=== PATIENT | female | born 1950 | race Caucasian/White ===

== ENCOUNTER → 2019-08-23 13:48 | Outpatient (CLI) | payer MEDICARE, SELFPAY ==
[2019-08-24 09:50] LABS: COVID19 Sendout Not Detected (Not Detect)
== END ==
PROVIDERS: Visit Provider Registered Nurse
DX: Z01.812 Encounter for preprocedural laboratory examination (principal)
CPT/HCPCS: 87635

== ENCOUNTER 2019-08-27 14:59 | Observation (INO) | payer MEDICARE, SELFPAY ==
[2019-08-22 09:02] VITALS: BMI 31.8
[2019-08-26] VITALS (15 sets, daily range): BP systolic 127–164; BP diastolic 62–107; PULSE 89–107; RESP 9–20; TEMP 36.1–36.7; O2SAT 90–100; BMI 31.8
--- NOTE | 2019-08-26 | DI.RAD.S_ITS ---
PROCEDURE: XR HIP W PEL IF DONE RT 4V INDICATIONS: ANTERIOR HIP ARTHROPLASTY TECHNIQUE: AP pelvis with lateral view(s) of the right hip(s). COMPARISON: None. FINDINGS: Right hip arthroplasty components in expected intraoperative alignment. Hardware appears intact. Dictated by: Jatinder Hu M.D. on 08/26/2019 at 15:52 Approved by: Jatinder Hu M.D. on 08/26/2019 at 15:52
--- NOTE | 2019-08-26 06:00 | DI.RAD.S_ITS ---
PROCEDURE: XR PELVIS 1-2V INDICATIONS: post op films TECHNIQUE: 1 view of the lower pelvis acquired. COMPARISON: None. FINDINGS: Normal alignment after right total hip arthroplasty. Bones: Patient is status post right hip arthroplasty, with hardware components in expected positions. The hip joint appears congruent. The visualized bony structures appear intact. Soft tissues: Overlying postoperative changes are noted. No suspicious soft tissue densities. IMPRESSION: Excellent alignment established after right total hip arthroplasty. Dictated by: Duglas Gandhi M.D. on 08/26/2019 at 14:05 Approved by: Duglas Ganhdi M.D. on 08/26/2019 at 14:06
[2019-08-26] MEDS: CELECOXIB 200 MG CAPSULE PO (08:43)
[2019-08-26] MEDS: ACETAMINOPHEN 325 MG TABLET 975 MG PO (08:43)
[2019-08-26] MEDS: PREGABALIN 75 MG CAPSULE PO (08:43)
[2019-08-26] MEDS: LACTATED RINGERS 1,000 ML 42 ML IV ×2 (08:43→11:31)
--- NOTE | 2019-08-26 10:10 | P.OP.PRE_ITS ---
Pre-operative Note COVID-19 COVID-19 status: Negative Result date/Date tested (Pos, Neg/Pending): 08/23/19 Interval Note History & Physical reviewed/Exam performed by Physician: Yes Changes to H&P: No H&P completed within 30 days and has changed as indicated here:: Plan for R anterior JOSHUA. I spoke with the patient that I am in boards collections. She is willing to provide her email to the boards for follow up. Email: [email or web address]
[2019-08-26] MEDS: CEFAZOLIN 2 GM/100 ML FROZ.PIGGY IV ×2 (10:15→17:10)
[2019-08-26] MEDS: TRANEXAMIC ACID 1,000 MG VIAL 1000 MG INJ ×2 (10:45→12:14)
--- NOTE | 2019-08-26 10:59 | SUR.OPER ---
Supine on padded [place] table with bilateral legs secured in padded positioning boots and suspended in positioning spars, operative leg in traction per surgeon. Head on one pillow. Arm on non-operative side secured on padded armboard <90 degrees abduction. Arm on operative side padded and resting across chest then secured with tape over sheet. Padded perineal post in place per surgeon.
[2019-08-26] MEDS: KETOROLAC 30 MG/ML VIAL IV (11:07)
[2019-08-26] MEDS: ROPIVACAINE 0.5% PF 5 MG/ML 20ML VIAL 60 ML INJ (11:07)
[2019-08-26] MEDS: MORPHINE 4 MG/ML INJ INJ (11:07)
[2019-08-26] MEDS: SODIUM CHLORIDE IRRIG SOLUTION 250 ML, POVIDONE-IODINE SPONGE STICKS 1 APPLIC IRR (11:10)
--- NOTE | 2019-08-26 12:45 | P.OP_ITS ---
Operative Date/Time/Diagnoses Date of procedure: 08/26/19 Time of procedure: 12:45 Pre-op diagnosis: right hip OA Post-op diagnosis: same Procedure & Clinicians Procedure: Right anterior JOSHUA Same procedure as scheduled: Yes Indications: right hip OA Surgeon: Ole Saunders Business Trainer: Genesis Lynch Anesthesia Type: General Operative Notes Findings: right hip OA Closure Type: primary Specimen(s): none sent Prosthetic devices, grafts, tissues, transplants, or devices: Mas [employer]hew R3 50 mm cup 50 mm x 32 mm polyethylene liner 2x 25 mm screws Mas and Nephew anthology size 7 standard stem Estimated Blood Loss (mL): 300 Blood products transfused: none Procedure in detail: Patient was met in the preoperative holding area where the site and side of surgery were marked by . Consent had been signed in clinic foot was reviewed again in the preoperative holding area. All last minute questions were answered. Patient was then brought back in the operating room where she was induced under general anesthesia. She was then transferred onto the [place] table. Her feet were placed in the [place] table boots. The right lower extremity then prepped and draped in normal sterile fashion. A surgical time-out was performed verifying the site and side of surgery. A 7 cm long incision centered approximately 2 cm distal and 1 cm lateral to the ASIS was made in the skin using 10. Blade aiming towards the fibular head. Electrocautery was then used to dissect down to the tensor fascia to tensor fascia was then incised using 10. Blade. An Allis clamp was placed on the medial leaflet and the tensor was retracted laterally. A Meyerding was then placed on the lateral aspect of the rectus and electrocautery was used to coagulate the ascending circumflex vessels. Cobra was then placed over the superior neck and a 2nd Cobra was placed onto the inferior neck giving us good capsular exposure. A anterior wall retractor was then placed over the anterior wall and a T-shaped capsulotomy was performed both leaflets were tagged with FiberWire and released cobras were then placed inside the capsule to give us good exposure to the neck. At reciprocating saw was then used to make a neck cut. Neck length was based off our templated films. Head was removed with a corkscrew. A soft tissue protector sleeve was then placed. We templated a size 50 mm cup starting with a size 46 mm Reamer we got down to the bottom of the colloid fossa and then up sized to 48 mm Reamer. Fluoroscopy was brought in at this time and we matched our inlet outlet view as compared to her standing templated film. I then reamed to a size 49 Reamer insult with good chatter. I then selected a 50 mm 3 hole R3 cup. This was placed under fluoroscopic guidance and malleted into place. 225 mm screws were then placed both with good purchase. A 50 mm x 32 mm polyethylene liner was then selected malleted into place. Tabs were checked and all were flush. We then turned our attention to the femoral side. Femoral elevator hook was placed underneath the femur the leg was then externally rotated to 110? and extended to the floor and abducted. A 2 prong retractor was then placed over the medial calcar and a bent Hohmann was placed between the capsule and the abductors and the capsule was released off its insertion on the femur. Next a large retractor was placed over the top of the greater trochanter and the short external rotators were released as necessary for exposure. A canal finer was then used followed by a chili pepper broach followed by size 1 broach. We began up sizing by 1 broach had time until we got to a size 6 broach. We then calcar planed off our 6 broach and got fluoroscopic views it appears that we could up size to canal fill better but overall our limb lengths were equal. The hip was then dislocated and the size 6 broach was removed and a size 7 broach was placed. Size 7 final stem with a standard offset was selected. This was then malleted into place and good rotational stability. A size 32 mm +0 head was then selected and malleted onto the trunnion. This was then reduced the leg was then fully externally rotated and was stable the leg was then externally rotated to 110? and dropped to the floor and still was found to be stable. The leg was then brought back up into neutral rotation final films were obtained. The wound was irrigated with Betadine followed by lavage with normal saline the capsule was then closed with a running Ethibond and the tag sutures removed. The tensor fascia was then closed with a running 0 Vicryl followed by 2 Vicryl in the subcutaneous layer followed by running 3 0 strata fix followed by Dermabond and Aquacel dressing. Complications: none Post-operative Condition: stable Disposition: PACU Plan for aftercare: WBAT RLE, DVt prohylaxis 6 weeks, 24 hours post-op abx, plan to DC to SNF
[2019-08-26] MEDS: HYDROMORPHONE 2 MG INJ IV ×3 (13:06→13:24)
--- NOTE | 2019-08-26 13:45 | SUR.PHASEI ---
Report called to
--- NOTE | 2019-08-26 14:04 | SUR.PHASEI ---
patient transferred to the floor with belongings bag, on o2 monitor. VS stable. IV saline locked. Rt hip dressing CDI. Report given to Natasha.
[2019-08-26] MEDS: LACTATED RINGERS 1,000 ML 125 ML IV (14:23)
--- NOTE | 2019-08-26 14:32 | PC.NURSE ---
Day shift note: Received patient at 1400, S/P right JOSHUA anterior approach by Dr. Saunders. Received awake, alert, and pleasant. On RA, 97%. VSS and afebrile. SCDs placed upon arrival, IVF initiated, ice pack to anterior right hip, which is CDI. CMS intact to RLE. Oriented to room, environment, and plan of care. Call light within reach, high fall risk precautions initiated.
--- NOTE | 2019-08-26 16:05 | PT.IIE ---
Current Diagnoses Unilateral primary osteoarthritis, right hip (08/26/19) Surgery Performed Operation Date: 08/26/19 10:15 Actual Procedures p Total Hip Arthroplasty/Anterior Approach(Right) - Ole Saunders MD Surgical History (Last Updated 05/18/19 @ 10:19 by Mickie White RN) History of hysterectomy (Acute) History of incisional hernia repair (Acute) Hx of bariatric surgery (Acute ~2009) Hx of bilateral cataract extraction (Acute 2018) Hx of cholecystectomy (Acute) Hx of tonsillectomy (Acute) Medical History (Last Updated 05/18/19 @ 10:19 by Mickie White RN) Depression (Acute) Dry skin (Acute) Eczema (Acute) Former smoker (Acute) HTN (hypertension) (Acute) Macular degeneration of both eyes (Acute) Osteoarthritis (Acute) Pneumonia (Acute) PVC (premature ventricular contraction) (Acute) Uterine cancer (Acute) Physical Therapy Inpatient Evaluation/Re-Eval M1 PT/OT-IP Prior Functional Status Start: 08/26/19 17:25 Freq: NEEDED Status: Active Protocol: Document 08/26/19 16:05 AB (Rec: 08/26/19 17:37 AB [id number]) Medical Review Prior Functional Status Medical History Reviewed Yes Communication able to make needs known although needs cues to stay awake but able to respond when questions were asked and able to follow directions Mobility and Gait pt stated that she is independent with all mobilities and ambulation without AD but occasionally uses a SPC Social History Household Members none Living Arrangements Mobile home Number of Floors (Floors) One Floor Number of Stairs To Enter/Railing? 5 steps to enter with L rail ascending Home Environment Standard Height Toilet,Tub/ Shower Home Equipment Shower Seat without Backrest, Hand Held Shower Additional Social History Comment pt does not have anybody to assist her when she goes home M2 PT-IP Current Condition Start: 08/26/19 17:25 Freq: NEEDED Status: Active Protocol: Document 08/26/19 16:05 AB (Rec: 08/26/19 17:37 AB [id number]) Physical Therapy Current Condition Current Condition Evaluation Date 08/26/19 Treatment Diagnosis s/p R JOSHUA anterior approach; difficulty in walking Onset Date 08/26/19 Precautions Anterior Hip Precautions No Hip Extension,No Hip External Rotation Weight Bearing Status Weight Bearing Status Weight Bear as Tolerated Allowed Weight Bearing Amount (enter % RLE WBAT or #) (%) M3 PT-IP Subjective Start: 08/26/19 17:25 Freq: NEEDED Status: Active Protocol: Document 08/26/19 16:05 AB (Rec: 08/26/19 17:37 AB [id number]) Subjective Physical Therapy Visit Type Type Initial Evaluation Visit Start Time 16:05 Visit Stop Time 16:40 Total Visit Minutes 35 Number of RACE RELATIONS ADVISER Visits 0 Physical Therapy Visit Comments Patient Comments pt agreeable to do PT Therapy Pain Assessment Pain When Pain Assessed At Rest Pain Present Pain Present Pain Reported Location Right Hip Intensity 2 Scale Used Numeric (0 - 10) Pain Management Techniques Apply Cold,Re-positioning, Timing of Activity with Medications M4 PT-IP Mobility and Gait Start: 08/26/19 17:25 Freq: NEEDED Status: Active Protocol: Document 08/26/19 16:05 AB (Rec: 08/26/19 17:37 AB [id number]) PT-Bed Mobility Assessment Supine to Sit Supine to Sit Standby Assistance Sit to Supine Sit to Supine Standby Assistance PT-Transfer Assessment Sit to and From Stand Sit to and from Stand Minimal Assistance,1 Person Assistance,Use of Upper Extremities Equipment Transfer Assistive Device Gait Belt,Front Wheeled Walker Orthotic/Prosthetic Devices or Brace: No Transfers Transfer Destination Toilet Transfer Technique ambulated using FWW Transfer Ability Level of Assist Minimal Assistance,1 Person Assistance,Use of Upper Extremities Comments Mobility Comments BP: 160/88 reviewed hip precautions with pt and pt requires cues to recall. completed supine to sit SBA and cues. completed sit to stand min A and cues and was able to sit on EOB SBA. pt c/ o feeling lightheaded. BP: 150/88. pt requesting to use the toilet. completed sit to stand min A and cues and ambulated to the toilet using FWW min A and cues for R quads activation. required min A for controlled descent on the toilet and pt used grab bar. completed sit to stand min A using grab bar and ambulated to the bed using FWW min A and cues. pt requested to go back to bed since she is very sleepy. completed sit to supine SBA. positioned pt in bed. call light and table placed within reach. BP: 148/ 88. ice pack provided. pt immediately dozes off and O2 sat decreased to 78-81. informed nurse. Gait Assessment Gait Gait Assistance Required: Minimum Assistance Distance (Feet) 10 Able to Maintain Weight Bearing Status Yes During Gait Assistive Devices Assistive Device Gait Belt,Front Wheeled Walker Orthotic/Prosthetic Devices or Brace: No Gait Deviations General Gait Pattern Antalgic,Decreased Stride Length,Decreased Feet Clearance Factors Limiting Gait Function Factors Limiting Gait Function Decreased Activity Tolerance, Decreased Strength,Limited Range of Motion,Pain,Poor Balance,Poor Safety Awareness, Respiratory Distress PT-Balance Assessment Sitting Balance and Reactions Static Sitting Balance Ability Good Dynamic Sitting Balance Ability Good Standing Balance and Reactions Static Standing Balance Ability Fair Dynamic Standing Balance Ability Fair Device Used FWW M5 PT-IP Objective Assessments Start: 08/26/19 17:25 Freq: NEEDED Status: Active Protocol: Document 08/26/19 16:05 AB (Rec: 08/26/19 17:37 AB [id number]) Orientation Orientation/Cognition Level of Alertness Alert Orientation Name,Place,Situation Language Function Ability No Deficits Noted Safety Awareness Decreased Safety Awareness Memory Description Short Term Impaired Gross Range of Motion Lower Extremity ROM Assessment Within Functional Limits Strength Lower Extremity Strength Assessment Right Impaired Hip 3+/5 Knee 4-/5 Coordination Assessment Gross Coordination Gross Coordination WNL Sensation Assessment Sensation Gross Sensation WNL Muscle Tone Muscle Tone WNL Yes M6 PT-IP Treatment Start: 08/26/19 17:25 Freq: NEEDED Status: Active Protocol: Document 08/26/19 16:05 AB (Rec: 08/26/19 17:37 AB [id number]) Physical Therapy Treatment Exercises Exercises Heel Slides Education Education Provided Precautions,Weight Bearing Status,Post-Op Packet,Safety M7 PT-IP Assessment and Plan Start: 08/26/19 17:25 Freq: NEEDED Status: Active Protocol: Document 08/26/19 16:05 AB (Rec: 08/26/19 17:37 AB [id number]) PT Summary Assessment and Plan Potential Rehabilitation Potential Good Status of Condition at Evaluation Evolving Summary Impairments Pain,ROM,Strength,Balance, Coordination,Sensation,Tone, Cognition,Bed Mobility, Transfers,Gait,Activity Tolerance Assessment Summary pt requiring min A with mobility and cues to maintain hip precautions. pt lives alone and will not have anybody to assist her. pt needs to be more independent with mobility prior to d/c home and will require SNF rehab at this time. will continue to assess progress. Goals Bed Mobility Goal Independent Transfer Goal Independent,Front Wheeled Walker Gait Goal Independent,Front Wheel Walker Gait Distance 150 Other Goals up/down 5 steps L rail ascending SBA Days to Meet Goals 5 Frequency of Treatment Frequency Of Treatment Twice a Day Treatment Plan Physical Therapy Treatment Plan Bed Mobility Training,Transfer Training,Gait Training, Therapeutic Exercise,Balance Retraining,Post Op Education, Discharge Planning,Hot or Cold Pack,Neuromuscular Re-ed, Coordination Retraining,Manual Therapy Recommendations To Nursing Amount of Assist Needed 1 Person Assist Discharge Recommendations PT Discharge Recommendations SNF Rehab Transportation Needs at Discharge Wheelchair/Cabulance
[2019-08-26 20:02] LABS: Add Manual Diff / Slide Review NO; Basophils Absolute Auto 0 /uL (0-100); Basophils Percent Auto 0.1 % (0-2); Eosinophils Absolute Auto 0 /uL (0-450); Hematocrit 33.6 % (36-46); Hemoglobin 11.1 g/dL (12.0-16.0); Lymphocytes Absolute Auto 400 /uL (1100-4500); Lymphocytes Percent Auto 4.6 % (25-40); Mean Corpuscular Hemoglobin 29.2 PG (26-34); Mean Corpuscular Volume 88.5 fL (80-100); Monocytes Absolute Auto 300 /uL (0-900); Monocytes Percent Auto 3.4 % (3-14); Neutrophils Absolute Auto 8500 /uL (1500-7000); Neutrophils Percent Auto 91.9 % (50-75); Platelet Count 130 X10^3/uL (150-400); Red Cell Distribution Width 13.1 % (11.6-14.8); White Blood Cell Count 9.3 X10^3/uL (4.5-11.0)
[2019-08-26] MEDS: diphenhydrAMINE 25 MG TABLET 100 MG PO (20:35)
[2019-08-26] MEDS: AMLODIPINE 5 MG TABLET 10 MG PO (20:35)
[2019-08-26] MEDS: OXYCODONE IR 5 MG TABLET PO (20:35)
[2019-08-26] MEDS: MELATONIN 3 MG TABLET 9 MG PO (20:36)
[2019-08-26] MEDS: ASPIRIN EC 81 MG TABLET PO (20:36)
[2019-08-27] VITALS (7 sets, daily range): BP systolic 124–147; BP diastolic 61–73; PULSE 86–110; RESP 16–18; TEMP 36.7–37.4; O2SAT 96–99
[2019-08-27] MEDS: CEFAZOLIN 2 GM/100 ML FROZ.PIGGY IV (01:16)
[2019-08-27] MEDS: OXYCODONE IR 5 MG TABLET PO ×4 (02:25→20:40)
[2019-08-27 05:50] LABS: Hematocrit 30.8 % (36-46); Hemoglobin 10.3 g/dL (12.0-16.0)
--- NOTE | 2019-08-27 07:31 | PM.PN.1 ---
Subjective Subjective Date Patient Seen: 08/27/19 Time Patient Seen: 07:31 Interval history: Patient is doing well post-op. Pain is well controlled. She is now POD#1 from right JOSHUA. She worked with PT yesterday. Exam Vital Signs (past 8 hours): - 08/26/19 23:50 08/27/19 04:50 Temperature 98.0 F 98.0 F Pulse Rate 90 92 H Respiratory Rate 16 16 Blood Pressure 127/62 147/65 H Pulse Oximetry 93 98 Oxygen Delivery Method Room Air Oxygen Flow Rate 0 Narrative Exam Narrative: NV intact in RLE, dressing c/d/i Objective Labs Result Diagrams: 08/27/19 05:25 Labs: Laboratory Results - last 24 hr 08/26/19 08/27/19 19:55 05:25 WBC 9.3 RBC 3.80 L Hgb 11.1 L 10.3 L Hct 33.6 L 30.8 L MCV 88.5 MCH 29.2 MCHC 33.0 RDW 13.1 Plt Count 130 L Neut % (Auto) 91.9 H Lymph % (Auto) 4.6 L [place] % (Auto) 3.4 Eos % (Auto) 0.0 L Baso % (Auto) 0.1 Neut # (Auto) 8500 H Lymph # (Auto) 400 L [place] # (Auto) 300 Eos # (Auto) 0 Baso # (Auto) 0 Assessment & Plan Assessment & Plan narrative: Patient is a 69 yo F who is now POD#1 from right anterior JOSHUA. Overall doing well. Her plan is to go to a SNF post-op. She lives alone. - ASA 81mg BID for 6 weeks - complete 24 hrs post-op abx - WBAT RLE - NO hip precautions - continue PT Time Spent With Patient Time with patient: less than 15 minutes
[2019-08-27] MEDS: ACETAMINOPHEN 325 MG TABLET 650 MG PO ×3 (08:46→18:46)
[2019-08-27] MEDS: ASPIRIN EC 81 MG TABLET PO ×2 (08:46→20:40)
[2019-08-27] MEDS: hydroCHLOROthiazide 12.5 MG CAPSULE PO (08:46)
[2019-08-27] MEDS: SODIUM CHLORIDE 0.9% FLUSH 10 ML IV (08:47)
--- NOTE | 2019-08-27 11:02 | PC.NURSE ---
Shift summary: Alert and oriented X3. 1-person/SBA with FWW. Dressing to R hip dry/intact with shadow drainage at distal portion. CMS+, denies paresthesias. Reports pain well-managed with scheduled Tylenol and PRN Oxycodone. Fresh ice pack in place. Lungs CTA, HRR. Using IS independently, encouraged to continue. Showered this morning with SALES CONSULTANT assist. Resting back in bed at this time. Able to make needs known and calls appropriately. Light and belongings within reach, bed alarm on.
--- NOTE | 2019-08-27 11:15 | PT.IPTN ---
Current Diagnoses Unilateral primary osteoarthritis, right hip (08/26/19) Surgery Performed Operation Date: 08/26/19 10:15 Actual Procedures p Total Hip Arthroplasty/Anterior Approach(Right) - Ole Saunders MD Physical Therapy Treatment Note M2 PT-IP Current Condition Start: 08/26/19 17:25 Freq: NEEDED Status: Active Protocol: Document 08/26/19 16:05 AB (Rec: 08/26/19 17:37 AB [id number]) Physical Therapy Current Condition Current Condition Evaluation Date 08/26/19 Treatment Diagnosis s/p R JOSHUA anterior approach; difficulty in walking Onset Date 08/26/19 Precautions Anterior Hip Precautions No Hip Extension,No Hip External Rotation Weight Bearing Status Weight Bearing Status Weight Bear as Tolerated Allowed Weight Bearing Amount (enter % RLE WBAT or #) (%) M3 PT-IP Subjective Start: 08/26/19 17:25 Freq: NEEDED Status: Active Protocol: Document 08/27/19 10:57 KS (Rec: 08/27/19 13:20 KS [id number]) Subjective Physical Therapy Visit Type Type Treatment Note Visit Start Time 10:57 Visit Stop Time 11:15 Total Visit Minutes 18 Number of DRIVERS' CASH CLERK Visits 1 Physical Therapy Visit Comments Patient Comments pt agreeable to do PT M4 PT-IP Mobility and Gait Start: 08/26/19 17:25 Freq: NEEDED Status: Active Protocol: Document 08/27/19 10:57 KS (Rec: 08/27/19 13:20 KS [id number]) PT-Bed Mobility Assessment Supine to Sit Supine to Sit Standby Assistance Sit to Supine Sit to Supine Standby Assistance Scooting Scooting to Edge of Bed Standby Assistance PT-Transfer Assessment Sit to and From Stand Sit to and from Stand Contact Guard Assistance,1 Person Assistance,Use of Upper Extremities Equipment Transfer Assistive Device Gait Belt,Front Wheeled Walker Orthotic/Prosthetic Devices or Brace: No Transfers Transfer Destination Bed,Toilet Transfer Technique ambulated using FWW Transfer Ability Level of Assist Contact Guard Assistance,1 Person Assistance,Use of Upper Extremities Comments Mobility Comments Pt was in bed upon arrival from therapy. pt sup<>sit w/ HOB elevated and scooted to edge of bed SBA. Pt then sit<> stand CGA w/ FWW and ambulated to toilet. Stand<>sit on toilet CGA w/ Min A for doffing briefs. Pt then sit<> stand from toilet CGA and was able to don briefs on her own. She then ambulated ~50 ft and returned to room. CGA for stand<>sit, SBA sit<>sup and repositioning w/ HOB elevated. Pt left in bed w/ all needs in reach. Gait Assessment Gait Gait Assistance Required: Contact Guard Assist Distance (Feet) 60 Able to Maintain Weight Bearing Status Yes During Gait Assistive Devices Assistive Device Gait Belt,Front Wheeled Walker Orthotic/Prosthetic Devices or Brace: No Gait Deviations General Gait Pattern Antalgic,Decreased Stride Length,Decreased Feet Clearance Factors Limiting Gait Function Factors Limiting Gait Function Decreased Activity Tolerance, Decreased Strength,Limited Range of Motion,Pain,Poor Balance,Poor Safety Awareness, Respiratory Distress Comments Gait Comments Pt ambulated ~60 ft w/ CGA and FWW, cues for quad activation , heel toe walking. PT-Balance Assessment Sitting Balance and Reactions Static Sitting Balance Ability Good Dynamic Sitting Balance Ability Good Standing Balance and Reactions Static Standing Balance Ability Good Dynamic Standing Balance Ability Fair Device Used FWW M5 PT-IP Objective Assessments Start: 08/26/19 17:25 Freq: NEEDED Status: Active Protocol: Document 08/26/19 16:05 AB (Rec: 08/26/19 17:37 AB [id number]) Orientation Orientation/Cognition Level of Alertness Alert Orientation Name,Place,Situation Language Function Ability No Deficits Noted Safety Awareness Decreased Safety Awareness Memory Description Short Term Impaired Gross Range of Motion Lower Extremity ROM Assessment Within Functional Limits Strength Lower Extremity Strength Assessment Right Impaired Hip 3+/5 Knee 4-/5 Coordination Assessment Gross Coordination Gross Coordination WNL Sensation Assessment Sensation Gross Sensation WNL Muscle Tone Muscle Tone WNL Yes M6 PT-IP Treatment Start: 08/26/19 17:25 Freq: NEEDED Status: Active Protocol: Document 08/27/19 10:57 KS (Rec: 08/27/19 13:20 KS [id number]) Physical Therapy Treatment Education Education Provided Precautions,Weight Bearing Status,Post-Op Packet,Safety M7 PT-IP Assessment and Plan Start: 08/26/19 17:25 Freq: NEEDED Status: Active Protocol: Document 08/27/19 10:57 KS (Rec: 08/27/19 13:20 KS [id number]) PT Summary Assessment and Plan Potential Rehabilitation Potential Good Status of Condition at Evaluation Evolving Summary Impairments Pain,ROM,Strength,Balance, Coordination,Sensation,Tone, Cognition,Bed Mobility, Transfers,Gait,Activity Tolerance Progress Towards Goals Progressing Toward Goals Assessment Summary Pt SBA for bed mobility and CGA for transfers and ambulation today. Cues for heel toe walking and quad activation during ambulation. D/c depending on pts progress , although she is improving she fatigues quickly and may require SNF to improve tolerance for activity. Goals Bed Mobility Goal Independent Transfer Goal Independent,Front Wheeled Walker Gait Goal Independent,Front Wheel Walker Gait Distance 150 Other Goals up/down 5 steps L rail ascending SBA Days to Meet Goals 5 Frequency of Treatment Frequency Of Treatment Twice a Day Treatment Plan Physical Therapy Treatment Plan Bed Mobility Training,Transfer Training,Gait Training, Therapeutic Exercise,Balance Retraining,Post Op Education, Discharge Planning,Hot or Cold Pack,Neuromuscular Re-ed, Coordination Retraining,Manual Therapy Recommendations To Nursing Amount of Assist Needed 1 Person Assist Discharge Recommendations PT Discharge Recommendations SNF Rehab Transportation Needs at Discharge Wheelchair/Cabulance
--- NOTE | 2019-08-27 11:18 | CM.DANOTE ---
Addendum entered by Molly Vines R.N. 08/27/19 12:21: Brought in the Medicare Choice List for patient to review. Encouraged her to look at it, and discuss with daughter, and can make a second choice. Will meet again with patient tomorrow to discuss. Original Note: DCP: Case received, EMR reviewed and met with patient. Introduced self and role. Was able to meet with patient and obtain information regarding her baseline activity prior to surgery, and her living situation. DCP assessment completed with information currently available. Patient is a 69 year old female who admitted yesterday morning to the care of the orthopedic team. PCP: Dr. Us, [facility], in [place]. Payer: confirmed: [facility] Medicare. Patient came to the hospital via private vehicle for a surgical procedure. She had right total hip arthroplasty. She has had history of chronic pain. According to notes, patient is wanting to go to skilled rehab secondary to living alone, and needing assistance after surgery. Met with patient in her room. She is pleasant, alert and oriented. She was sitting up in bed knitting. 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 She resides alone in [place]. At baseline, she is independent. She does have a daughter that lives in [place]. Discussed skilled rehab with patient. She is hoping to go to [facility], before going home. Let her know that they would need to get an insurance authorization with her [employer], and she is aware. This would not happen until Thursday. She would also need an updated COVID as well. Spoke to Kaylin at [facility]. She is reviewing. Stated that they can usually get the authorization pretty fast, but have to confirm with Lynette on Thursday if they have availabilities. P: DCP to continue to follow. Will encourage patient to make a second choice, and will give her the Medicare Choice List, in case [facility] can't accept. Will have to verify with [facility] if they can accept on Thursday, for only one facility can get authorization for her insurance at a time. Molly Vines RN/Primary Care Physician
--- NOTE | 2019-08-27 16:42 | PT.IPTN ---
Current Diagnoses Unilateral primary osteoarthritis, right hip (08/26/19) Surgery Performed Operation Date: 08/26/19 10:15 Actual Procedures p Total Hip Arthroplasty/Anterior Approach(Right) - Ole Saunders MD Physical Therapy Treatment Note M2 PT-IP Current Condition Start: 08/26/19 17:25 Freq: NEEDED Status: Active Protocol: Document 08/26/19 16:05 AB (Rec: 08/26/19 17:37 AB [id number]) Physical Therapy Current Condition Current Condition Evaluation Date 08/26/19 Treatment Diagnosis s/p R JOSHUA anterior approach; difficulty in walking Onset Date 08/26/19 Precautions Anterior Hip Precautions No Hip Extension,No Hip External Rotation Weight Bearing Status Weight Bearing Status Weight Bear as Tolerated Allowed Weight Bearing Amount (enter % RLE WBAT or #) (%) M3 PT-IP Subjective Start: 08/26/19 17:25 Freq: NEEDED Status: Active Protocol: Document 08/27/19 16:25 KS (Rec: 08/27/19 17:48 KS [id number]) Subjective Physical Therapy Visit Type Type Treatment Note Visit Start Time 16:25 Visit Stop Time 16:42 Total Visit Minutes [address] JUD[address] Visits 2 Physical Therapy Visit Comments Patient Comments pt agreeable to do PT Therapy Pain Assessment Pain When Pain Assessed During Mobility Pain Present Pain Present Pain Reported Location Right Hip Scale Used no number given Description Aching Pain Management Techniques Re-positioning M4 PT-IP Mobility and Gait Start: 08/26/19 17:25 Freq: NEEDED Status: Active Protocol: Document 08/27/19 16:25 KS (Rec: 08/27/19 17:48 KS [id number]) PT-Bed Mobility Assessment Supine to Sit Supine to Sit Standby Assistance Sit to Supine Sit to Supine Standby Assistance Scooting Scooting to Edge of Bed Standby Assistance PT-Transfer Assessment Sit to and From Stand Sit to and from Stand Contact Guard Assistance,1 Person Assistance,Use of Upper Extremities Equipment Transfer Assistive Device Gait Belt,Front Wheeled Walker Orthotic/Prosthetic Devices or Brace: No Transfers Transfer Destination Bed,Toilet Transfer Technique ambulated using FWW Transfer Ability Level of Assist Contact Guard Assistance,1 Person Assistance,Use of Upper Extremities Comments Mobility Comments Pt was in bed upon arrival from therapy. SBA for sup<>sit and scooting to EOB. CGA for sit<>stand w/ FWW. Pt then ambulated CGA to toilet, SBA for stand<>sit<>stand from toilet and pt able to don and doff briefs w/o assist. Pt then ambulated to sink to perform hand hygiene, pt maintained standing balanced 1 min while washing hands, then ambulated ~[address] CGA w/ FWW. Cues for heel toe walking and quad activation. Pt returned to room, stand<> sit and sit<>sup SBA. Pt left in bed w/ SCDs on, RN in room and all needs in reach. Gait Assessment Gait Gait Assistance Required: Contact Guard Assist Distance (Feet) 110 Able to Maintain Weight Bearing Status Yes During Gait Assistive Devices Assistive Device Gait Belt,Front Wheeled Walker Orthotic/Prosthetic Devices or Brace: No Gait Deviations General Gait Pattern Antalgic,Decreased Stride Length,Decreased Feet Clearance Factors Limiting Gait Function Factors Limiting Gait Function Decreased Activity Tolerance, Decreased Strength,Limited Range of Motion,Pain,Poor Balance,Poor Safety Awareness, Respiratory Distress Comments Gait Comments Please refer to mobility section for details. PT-Balance Assessment Sitting Balance and Reactions Static Sitting Balance Ability Good Dynamic Sitting Balance Ability Good Standing Balance and Reactions Static Standing Balance Ability Good Dynamic Standing Balance Ability Fair Device Used FWW M5 PT-IP Objective Assessments Start: 08/26/19 17:25 Freq: NEEDED Status: Active Protocol: Document 08/26/19 16:05 AB (Rec: 08/26/19 17:37 AB [id number]) Orientation Orientation/Cognition Level of Alertness Alert Orientation Name,Place,Situation Language Function Ability No Deficits Noted Safety Awareness Decreased Safety Awareness Memory Description Short Term Impaired Gross Range of Motion Lower Extremity ROM Assessment Within Functional Limits Strength Lower Extremity Strength Assessment Right Impaired Hip 3+/5 Knee 4-/5 Coordination Assessment Gross Coordination Gross Coordination WNL Sensation Assessment Sensation Gross Sensation WNL Muscle Tone Muscle Tone WNL Yes M6 PT-IP Treatment Start: 08/26/19 17:25 Freq: NEEDED Status: Active Protocol: Document 08/27/19 16:25 KS (Rec: 08/27/19 17:48 KS [id number]) Physical Therapy Treatment Education Education Provided Precautions,Weight Bearing Status,Post-Op Packet,Safety M7 PT-IP Assessment and Plan Start: 08/26/19 17:25 Freq: NEEDED Status: Active Protocol: Document 08/27/19 16:25 KS (Rec: 08/27/19 17:48 KS [id number]) PT Summary Assessment and Plan Potential Rehabilitation Potential Good Status of Condition at Evaluation Evolving Summary Impairments Pain,ROM,Strength,Balance, Coordination,Sensation,Tone, Cognition,Bed Mobility, Transfers,Gait,Activity Tolerance Progress Towards Goals Progressing Toward Goals Assessment Summary Pt SBA for bed mobility and SBA to CGA for transfers and ambulation today. Pt able to tolerate increased ambulation distance today, but c/o fatigue after ~80 ft. and continues to have low tolerance for activity. Goals Bed Mobility Goal Independent Transfer Goal Independent,Front Wheeled Walker Gait Goal Independent,Front Wheel Walker Gait Distance 150 Other Goals up/down 5 steps L rail ascending SBA Days to Meet Goals 5 Frequency of Treatment Frequency Of Treatment Twice a Day Treatment Plan Physical Therapy Treatment Plan Bed Mobility Training,Transfer Training,Gait Training, Therapeutic Exercise,Balance Retraining,Post Op Education, Discharge Planning,Hot or Cold Pack,Neuromuscular Re-ed, Coordination Retraining,Manual Therapy Recommendations To Nursing Amount of Assist Needed 1 Person Assist Discharge Recommendations PT Discharge Recommendations Home with Assistance,Home Health,SNF Rehab Transportation Needs at Discharge Wheelchair/Cabulance
[2019-08-27] MEDS: MELATONIN 3 MG TABLET 9 MG PO (20:40)
[2019-08-27] MEDS: diphenhydrAMINE 25 MG TABLET 100 MG PO (20:40)
[2019-08-27] MEDS: AMLODIPINE 5 MG TABLET 10 MG PO (20:40)
[2019-08-28] MEDS: OXYCODONE IR 5 MG TABLET PO ×6 (00:56→20:52)
[2019-08-28 04:35] VITALS: BP 146/77; PULSE 97; RESP 14; TEMP 37; O2SAT 98
[2019-08-28 07:30] VITALS: BP 147/95; PULSE 91; RESP 18; TEMP 36.9; O2SAT 99
[2019-08-28] MEDS: ACETAMINOPHEN 325 MG TABLET 650 MG PO ×3 (07:56→20:51)
[2019-08-28] MEDS: SODIUM CHLORIDE 0.9% FLUSH 10 ML IV (07:57)
[2019-08-28] MEDS: ASPIRIN EC 81 MG TABLET PO ×2 (07:58→20:52)
[2019-08-28] MEDS: hydroCHLOROthiazide 12.5 MG CAPSULE PO (07:59)
--- NOTE | 2019-08-28 08:41 | CM.DPC ---
Addendum entered by Molly Vines R.N. 08/28/19 13:29: Had another conversation with patient that her insurance most likely may not cover skilled, for she is ambulating with minimal assist, and has completed stair training with P.T. Updated Dr. Mas that patient could go home today with home health if needed. After visit, patient stated, she is not ready to go home. She is staying another day. Had another conversation with patient that she will need to be discharged home tomorrow, regardless if [facility] gets auth, or not, for she is stable. She indicated that she can go home and pursue outpatient P.T. with [facility], and she will call them tomorrow. There is no need at this time to look into second choice of facilities. Plan tomorrow is to discharge home with outpatient P.T. Can still follow up with [facility] as well. Original Note: DCP Cont: Spoke to patient this morning. She was sitting up having her breakfast. Asked her if she had a back up plan if her insurance does not authorize assisted. Stated, if she has to, she could stay with her daughter, but she has a small apartment. Let patient know that there is a possibility that her insurance may not approve. Also, asked her if she made a second choice of facilities. Stated that she will discuss with her daughter today. P: DCP to continue to follow. [facility] has referral, they will need to get an authorization from her managed Medicare. Also, it is uncertain if they will have availability tomorrow, will need to contact August, and patient will need to make a second choice. Other option is home with home health. Molly Vines RN/Business Support Professional
--- NOTE | 2019-08-28 10:52 | PT.IPTN ---
Current Diagnoses Unilateral primary osteoarthritis, right hip (08/26/19) Surgery Performed Operation Date: 08/26/19 10:15 Actual Procedures p Total Hip Arthroplasty/Anterior Approach(Right) - Ole Saunders MD Physical Therapy Treatment Note M2 PT-IP Current Condition Start: 08/26/19 17:25 Freq: NEEDED Status: Active Protocol: Document 08/26/19 16:05 AB (Rec: 08/26/19 17:37 AB [id number]) Physical Therapy Current Condition Current Condition Evaluation Date 08/26/19 Treatment Diagnosis s/p R JOSHUA anterior approach; difficulty in walking Onset Date 08/26/19 Precautions Anterior Hip Precautions No Hip Extension,No Hip External Rotation Weight Bearing Status Weight Bearing Status Weight Bear as Tolerated Allowed Weight Bearing Amount (enter % RLE WBAT or #) (%) M3 PT-IP Subjective Start: 08/26/19 17:25 Freq: NEEDED Status: Active Protocol: Document 08/28/19 09:39 LJ (Rec: 08/28/19 10:52 LJ [id number]) Subjective Physical Therapy Visit Type Type Treatment Note Visit Start Time 09:39 Visit Stop Time 10:05 Total Visit Minutes 31 Number of COMPUTER FORENSICS TECHNICIAN Visits 3 Physical Therapy Visit Comments Patient Comments pt agreeable to do PT Therapy Pain Assessment Pain When Pain Assessed During Mobility Pain Present Pain Present Pain Reported M4 PT-IP Mobility and Gait Start: 08/26/19 17:25 Freq: NEEDED Status: Active Protocol: Document 08/28/19 09:39 LJ (Rec: 08/28/19 10:52 JOSE [id number]) PT-Bed Mobility Assessment Supine to Sit Supine to Sit Standby Assistance Sit to Supine Sit to Supine Standby Assistance Scooting Scooting to Edge of Bed Standby Assistance PT-Transfer Assessment Sit to and From Stand Sit to and from Stand Standby Assistance,Use of Upper Extremities Equipment Transfer Assistive Device Gait Belt,Front Wheeled Walker Transfers Transfer Destination Bed Transfer Ability Level of Assist Standby Assistance,Use of Upper Extremities Comments Mobility Comments Pt returning to bed from using the toilet w/o assistance. Nursing in room. Sit<>stand using UEs to push off bed and lower self to side of bed when returning required SBA. Pt able to perform transfers safely w/o assistance. She did require slight assistance getting RLE into the bed. She was able to position herself in bed independently. Gait Assessment Gait Gait Assistance Required: Standby Assistance Distance (Feet) 150 Able to Maintain Weight Bearing Status Yes During Gait Assistive Devices Assistive Device Gait Belt,Front Wheeled Walker Orthotic/Prosthetic Devices or Brace: No Gait Deviations General Gait Pattern Antalgic,Decreased Stride Length,Decreased Feet Clearance Factors Limiting Gait Function Factors Limiting Gait Function Decreased Activity Tolerance, Decreased Strength,Limited Range of Motion,Pain,Poor Balance,Poor Safety Awareness Comments Gait Comments Pt ambulated to stairs and back to room SBA using FWW. Cues for upright posture and more even distibution of weight on both lower limbs Stair Climbing Assessment Evaluation Level of Assist On Stairs Standby Assistance,Contact Guard Assistance Devices Stair Climbing Assistive Devices Left Railing,Right Railing Technique/Endurance Stair Climbing Direction Ascend and Descend Stair Climbing Technique Step to Step Number of Steps Climbed 3 Stair Climbing Set # Repetitions (reps) 1 Comments Stair Climbing Comments Pt not wanting to trial stairs . Complained of wooziness during ambulation and stopped for several seconds to breathe deeply and catch her breath. Pt ascended the stairs using both railings leading with LLE . At the top of the stairs she rested for several seconds then descended the top stair and sat down on the top step due to feeling woozie. She rested there and was able to carry on a conversation while performing some deep breaths. Pt then used railings to stand up on the second step and continue down the stairs. Pt was able to stand from seated position on the stairs w/o assistance other than using the railings. She then continued to ambulate back to her room. Pt stated she has contacted an OP therapy clinic for PT after discharge. Also stated she has friends who could drive her to appointments. M5 PT-IP Objective Assessments Start: 08/26/19 17:25 Freq: NEEDED Status: Active Protocol: Document 08/26/19 16:05 AB (Rec: 08/26/19 17:37 AB [id number]) Orientation Orientation/Cognition Level of Alertness Alert Orientation Name,Place,Situation Language Function Ability No Deficits Noted Safety Awareness Decreased Safety Awareness Memory Description Short Term Impaired Gross Range of Motion Lower Extremity ROM Assessment Within Functional Limits Strength Lower Extremity Strength Assessment Right Impaired Hip 3+/5 Knee 4-/5 Coordination Assessment Gross Coordination Gross Coordination WNL Sensation Assessment Sensation Gross Sensation WNL Muscle Tone Muscle Tone WNL Yes M6 PT-IP Treatment Start: 08/26/19 17:25 Freq: NEEDED Status: Active Protocol: Document 08/28/19 09:39 (Rec: 08/28/19 10:52 [id number]) Physical Therapy Treatment Exercises Exercises Ankle Pumps,Gluteal Sets,Quad Sets Education Education Provided Precautions,Weight Bearing Status,Safety M7 PT-IP Assessment and Plan Start: 08/26/19 17:25 Freq: NEEDED Status: Active Protocol: Document 08/28/19 09:39 (Rec: 08/28/19 10:52 [id number]) PT Summary Assessment and Plan Potential Rehabilitation Potential Good Status of Condition at Evaluation Evolving Summary Impairments Pain,ROM,Strength,Balance, Coordination,Sensation,Tone, Cognition,Bed Mobility, Transfers,Gait,Activity Tolerance Progress Towards Goals Progressing Toward Goals Assessment Summary Pt SBA for bed mobility (other than slight assist to lift RLE onto bed). Transfers w/o assistance using UE to push off and lower self onto bed. Pt is stable ambulating with FWW giving herself cues for posture and normalizing gait. She is able to ascend and descend 3 stairs with rest break. Needs cues on deep breathing during activity. Pt has met goals of ambulation distance and stair training. Goals Bed Mobility Goal Independent Transfer Goal Independent,Front Wheeled Walker Gait Goal Independent,Front Wheel Walker Gait Distance 150 Other Goals up/down 5 steps L rail ascending SBA Days to Meet Goals 5 Frequency of Treatment Frequency Of Treatment Twice a Day Treatment Plan Physical Therapy Treatment Plan Bed Mobility Training,Transfer Training,Gait Training, Therapeutic Exercise,Balance Retraining,Post Op Education, Discharge Planning,Hot or Cold Pack,Neuromuscular Re-ed, Coordination Retraining,Manual Therapy Recommendations To Nursing Amount of Assist Needed 1 Person Assist Discharge Recommendations PT Discharge Recommendations Home with Assistance,Home Health,Outpatient PT Transportation Needs at Discharge Wheelchair/Cabulance
[2019-08-28 11:16] VITALS: BP 128/68; PULSE 89; RESP 18; TEMP 36.8; O2SAT 98
--- NOTE | 2019-08-28 12:50 | P.PN_ITS ---
Subjective Subjective Date Patient Seen: 08/28/19 Time Patient Seen: 12:50 Interval history: She notes that she made some progress with physical therapy today she was able to get up and down the steps. 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 She has a daughter who works in town as a bridges supervisor who lives in an apartment with 7 steep steps. Exam Vital Signs (past 8 hours): - 08/28/19 07:30 08/28/19 11:16 Temperature 98.4 F 98.3 F Pulse Rate 91 H 89 Respiratory Rate 18 18 Blood Pressure 147/95 H 128/68 Pulse Oximetry 99 98 Oxygen Delivery Method Room Air Oxygen Flow Rate 0 Narrative Exam Narrative: She is neurologically intact distally or calfs are soft bilaterally bilaterally, her dressings intact, she can flex her hip and do a s traight leg raise but both flexion and straight leg raise is somewhat weak. Objective Labs Result Diagrams: 08/27/19 05:25 Assessment & Plan Assessment & Plan narrative: Improving status post right total hip arthroplasty plan continue to progress with physical therapy I encouraged her to get out of bed multiple times today to work on walking up and down the simmons an progressive weight-bearing. She is going to speak to her daughter were working on a discharge plan if she needs additional therapy she may need to go to rehab otherwise there is a chance we can get her discharged to home.
--- NOTE | 2019-08-28 14:15 | PT-IP ANOTE ---
Pt refusal in afternoon.
[2019-08-28 15:20] VITALS: BP 141/72; PULSE 91; RESP 17; TEMP 37.6; O2SAT 96
[2019-08-28 20:43] VITALS: BP 159/69; PULSE 92; RESP 16; TEMP 36.8; O2SAT 98
[2019-08-28] MEDS: AMLODIPINE 5 MG TABLET 10 MG PO (20:52)
[2019-08-28] MEDS: diphenhydrAMINE 25 MG TABLET 100 MG PO (20:57)
[2019-08-28] MEDS: MELATONIN 3 MG TABLET 9 MG PO (20:57)
--- NOTE | 2019-08-28 22:45 | PC.NURSE ---
ambulated in hallways in tracy shift. 1pa fww. dressing intact with small shadow drainage. pain managed with oxycodone and tylenol. call ligth in reach. bed alarm active.
--- NOTE | 2019-08-29 01:13 | PC.NURSE ---
Addendum entered by Hilda Hill R.N. 08/29/19 01:42: States pain is now up to 4/10; requested/medicated with Oxycodone. Original Note: Patient is alert and oriented. Breath sounds CTA with RA sat of 96%. HRR. Denies nausea. BT present and is passing flatus but has not had BM since 08/24 but states I haven't eaten much. Aquacel dressing to right anterior hip is CDI; minimal bruising noted around dressing. Voiding without dysuria, frequency or urgency. Is assisted out of bed and uses walker due to weakness in right LE. Able to move self in bed. States pain is 2/10 and declines pain medication at this time; ice pack applied. CMS is intact. Wearing bilateral calf SCD's. Fall risk score is moderate and bed alarm is activated.
[2019-08-29 01:26] VITALS: BP 129/67; PULSE 84; RESP 17; TEMP 36.6; O2SAT 96
[2019-08-29] MEDS: OXYCODONE IR 5 MG TABLET PO ×2 (01:41→10:02)
[2019-08-29 04:17] VITALS: BP 148/72; PULSE 91; RESP 16; TEMP 36.1; O2SAT 98
[2019-08-29 08:00] VITALS: BP 147/71; PULSE 91; RESP 18; TEMP 36.3; O2SAT 98
--- NOTE | 2019-08-29 08:34 | CM.DPC ---
DCP/continued: Reviewed chart. Current d/c plan is SNF vs. home with supportive daughter/Amelie. Per notes, patient physically doing very well after right JOSHUA performed on 08-26-[address] Saunders. Met with patient this AM to discuss d/c planning. Patient initially thought that she should go to SNF. After discussing with Dr. Mas yesterday and her progress she is now very comfortable staying at her daughter's at time of d/c. Daughter/Amelie resides in [place] and only works 1 day per week. Patient provided AUTOMOTIVE VEHICLE INSPECTOR with permission to speak with her daughter. Placed call to Amelie explained role. Amelie very comfortable taking patient home today. She has no problem with assisting her with ADL's as needed. Patient reports that she plans to do outpatient therapy at [facility] in [place]. Updated RN/Betty and Meg. Awaiting orthopedic group to round this AM. Anticipate d/c today. Notified PT of above. Hopeful they can see patient prior to d/c today. P: Home with outpatient therapy once discharged. HOLLY Portillo
[2019-08-29] MEDS: ACETAMINOPHEN 325 MG TABLET 650 MG PO (09:14)
[2019-08-29] MEDS: ASPIRIN EC 81 MG TABLET PO (09:14)
[2019-08-29] MEDS: polyethylene glycoL 3350 17 GM POWD.PACK PO (09:14)
[2019-08-29] MEDS: SODIUM CHLORIDE 0.9% FLUSH 10 ML IV (09:14)
[2019-08-29] MEDS: hydroCHLOROthiazide 12.5 MG CAPSULE PO (09:14)
--- NOTE | 2019-08-29 10:02 | PM.DS.1 ---
History of Present Illness History of Present Illness Date Patient Seen: 08/29/19 Time Patient Seen: 10:03 Chief complaint: RT JOSHUA 08/25 Discharge Providers Provider Discharge Date: 08/29/19 Consults: 08/26/19 06:00 Consult to Anesthesiology Routine Comment: Consulting Provider: Anesthesiologist Reason for consultation: Regional block for post operative pain control 08/26/19 13:52 Consult to Discharge Planning Routine Comment: Consult to Physical Therapy Evaluate & Treat Comment: Physician Instructions: post op JOSHUA protocol Consult to Respiratory Therapy Evaluate & Treat Comment: Physician Instructions: Evaluate and treat Discharge provider: Genesis Lynch PA-C Summary Hospital Course Discharge Diagnosis: s/p right total hip arthroplasty Hospital Course: Patient was admitted for right total hip arthroplasty with Dr. Saunders. Hospital course was unremarkable. Patient was ambulating with physical therapy throughout her stay. She was eating and voiding without difficulty or assistance. Her daughter will be available to check on her at home. ASA for DVT prophylaxis. Her pain was adequately controlled with Tylenol and ibuprofen. Status at Discharge Functional status at discharge: uses cane/walker Exam Vital Signs (past 8 hours): - 08/29/19 04:17 08/29/19 08:00 Temperature 97.0 F L 97.4 F L Pulse Rate 91 H 91 H Respiratory Rate 16 18 Blood Pressure 148/72 H 147/71 H Pulse Oximetry 98 98 Oxygen Delivery Method Room Air Oxygen Flow Rate 0 Narrative Exam Narrative: Patient lying in bed in no acute distress. She is alert and oriented x3. Calves are soft, compressible, nontender bilaterally. She is able to actively dorsiflex and plantar flex. Pulses are symmetrical. Right anterior dressing is CDI. Sensation intact to light touch throughout bilateral lower extremities. She has not worked with physical therapy yet this morning and is requesting a shower. Objective Labs Result Diagrams: 08/27/19 05:25 Discharge Plan Discharge Plan Patient Disposition: Home Discharge Med Rec/Prescriptions Prescriptions: New polyethylene glycol 3350 17 gram Powder In Packet 17 gm PO DAILY PRN (Reason: Constipation) Qty: 30 RF: 0 aspirin 81 mg Tablet,Delayed Release (Dr/Ec) 81 mg PO BID Qty: 60 RF: 0 oxycodone 5 mg Tablet 5 mg PO Q3HR PRN (Reason: Pain, Moderate (4-6)) Qty: 30 RF: 0 Continued acetaminophen [Acetaminophen Extra Strength] 500 mg Tablet 1,000 mg PO Q12H PRN (Reason: Pain) RF: 0 amlodipine 10 mg Tablet 10 mg PO BEDTIME RF: 0 diphenhydramine HCl [Benadryl] 25 mg Capsule 100 mg PO BEDTIME PRN (Reason: Sleep) RF: 0 ibuprofen 200 mg Tablet 800 mg PO Q12H PRN (Reason: Pain) RF: 0 hydrochlorothiazide 12.5 mg Tablet 12.5 mg PO DAILY RF: 0 melatonin 10 mg Tablet 10 - 30 mg PO BEDTIME PRN (Reason: Sleep) RF: 0 PreserVision AREDS-2 [id number] Capsule 1 tab PO BID RF: 0 Follow up/Referrals: Ole Saunders MD [Physician] - (Follow up with me in 10-14 days post-op) Discharge Orders: Discharge (Order); Ordered 08/29/19 Ordered By: Genesis Lynch Provider Discharge Instructions Diet: Regular Activity: WBAT RLE, no hip precautions Cold/Heat Therapy: OK to ice as needed for pain and swelling control Skin/Wound/Dressing Care Report to your healthcare provider any signs of infection, such as:: chills, fever, night sweats, increased pain, unusual drainage and unusual redness Dressing: Leave dressing in place until post-op appointment. OK to shower over dressing. Do not soak or bathe. Visit Report/Discharge Packet Instructions: DI for Hip Replacement, How to Prevent Falls, DI for Prescription Opioid Use, Polyethylene Glycol 3350, Oxycodone, Aspirin Stand Alone Forms: Surgery Discharge Discharge Data Attending Provider: Ole Saunders
--- NOTE | 2019-08-29 11:19 | PT.IPTN ---
Current Diagnoses Unilateral primary osteoarthritis, right hip (08/27/19) Surgery Performed Operation Date: 08/26/19 10:15 Actual Procedures p Total Hip Arthroplasty/Anterior Approach(Right) - Ole Saunders MD Physical Therapy Treatment Note M2 PT-IP Current Condition Start: 08/26/19 17:25 Freq: NEEDED Status: Active Protocol: Document 08/26/19 16:05 AB (Rec: 08/26/19 17:37 AB [id number]) Physical Therapy Current Condition Current Condition Evaluation Date 08/26/19 Treatment Diagnosis s/p R JOSHUA anterior approach; difficulty in walking Onset Date 08/26/19 Precautions Anterior Hip Precautions No Hip Extension,No Hip External Rotation Weight Bearing Status Weight Bearing Status Weight Bear as Tolerated Allowed Weight Bearing Amount (enter % RLE WBAT or #) (%) M3 PT-IP Subjective Start: 08/26/19 17:25 Freq: NEEDED Status: Active Protocol: Document 08/29/19 11:06 AW (Rec: 08/29/19 11:19 AW [id number]) Subjective Physical Therapy Visit Type Type Treatment Note Visit Start Time 10:01 Visit Stop Time 10:22 Total Visit Minutes 21 Number of ACTUARIAL ANALYST Visits 0 Physical Therapy Visit Comments Patient Comments Pt is willing to participate with PT Patient Goals Pt hopes to discharge today to her daughter's home. Therapy Pain Assessment Pain When Pain Assessed During Mobility Pain Present Pain Present Reassessed Location right anterior thigh Intensity 3 Scale Used Numeric (0 - 10) Pain Management Techniques Distraction,Re-positioning M4 PT-IP Mobility and Gait Start: 08/26/19 17:25 Freq: NEEDED Status: Active Protocol: Document 08/29/19 11:06 AW (Rec: 08/29/19 11:19 AW [id number]) PT-Bed Mobility Assessment Supine to Sit Supine to Sit Standby Assistance Scooting Scooting to Edge of Bed Standby Assistance PT-Transfer Assessment Sit to and From Stand Sit to and from Stand Standby Assistance,Use of Upper Extremities Equipment Transfer Assistive Device Gait Belt,Front Wheeled Walker Transfers Transfer Destination Toilet,Wheelchair Transfer Technique pt ambulated with FWW Transfer Ability Level of Assist Standby Assistance,Use of Upper Extremities Comments Mobility Comments Pt in bed visiting with her daughter upon PT arrival. She was able to complete supine exercises and then supine to sit using her UE's to move her RLE out of the bed. She stood using FWW SBA and walked in the halls 100 feet SBA with FWW. She required cues to slow down and conserve energy. Pt then transferred to a w/c and was wheeled to the stairs for practice. After stair training , pt transferred back to the w /c for return to her room where she stood using FWW SBA and walked to the toilet. Pt was left on the toilet with RN attending. Gait Assessment Gait Gait Assistance Required: Standby Assistance Distance (Feet) 100 Able to Maintain Weight Bearing Status Yes During Gait Assistive Devices Assistive Device Gait Belt,Front Wheeled Walker Orthotic/Prosthetic Devices or Brace: No Gait Deviations General Gait Pattern Antalgic,Decreased Stride Length,Decreased Feet Clearance,Flexed Trunk,Step-to Gait Factors Limiting Gait Function Factors Limiting Gait Function Abnormal Tonal Influences, Decreased Strength,Limited Range of Motion,Pain,Poor Balance,Poor Safety Awareness Comments Gait Comments Pt ambulated from room 216 to the main nurses station with FWW SBA, requiring verbal cues to slow down and take her time. Pt was cued to keep her shoulders over her hands in order to address flexed posture which pt and her daughter state is typical for her. Stair Climbing Assessment Evaluation Level of Assist On Stairs Standby Assistance Devices Stair Climbing Assistive Devices Left Railing,Right Railing Technique/Endurance Stair Climbing Direction Ascend and Descend Stair Climbing Technique Step to Step Number of Steps Climbed 3 Stair Climbing Set # Repetitions (reps) 1 Comments Stair Climbing Comments Pt completed stairs set with B rails SBA. She was able to sequence appropriately without need for verbal cues. M5 PT-IP Objective Assessments Start: 08/26/19 17:25 Freq: NEEDED Status: Active Protocol: Document 08/26/19 16:05 AB (Rec: 08/26/19 17:37 AB [id number]) Orientation Orientation/Cognition Level of Alertness Alert Orientation Name,Place,Situation Language Function Ability No Deficits Noted Safety Awareness Decreased Safety Awareness Memory Description Short Term Impaired Gross Range of Motion Lower Extremity ROM Assessment Within Functional Limits Strength Lower Extremity Strength Assessment Right Impaired Hip 3+/5 Knee 4-/5 Coordination Assessment Gross Coordination Gross Coordination WNL Sensation Assessment Sensation Gross Sensation WNL Muscle Tone Muscle Tone WNL Yes M6 PT-IP Treatment Start: 08/26/19 17:25 Freq: NEEDED Status: Active Protocol: Document 08/29/19 11:06 AW (Rec: 08/29/19 11:19 AW [id number]) Physical Therapy Treatment Exercises Exercises Ankle Pumps,Gluteal Sets,Quad Sets,Heel Slides Education Education Provided Precautions,Weight Bearing Status,Safety Other Treatments Other Treatment Performed Heel slides limited due to increase in pain. Pt's daughter, Amelie, was present and participated in caregiver training throughout session. M7 PT-IP Assessment and Plan Start: 08/26/19 17:25 Freq: NEEDED Status: Active Protocol: Document 08/29/19 11:06 AW (Rec: 08/29/19 11:19 AW [id number]) PT Summary Assessment and Plan Potential Rehabilitation Potential Good Status of Condition at Evaluation Stable Summary Impairments Pain,ROM,Strength,Balance, Coordination,Sensation,Tone, Cognition,Bed Mobility, Transfers,Gait,Activity Tolerance Assessment Summary Pt required SBA for all mobility. Her daughter, Amelie, was able to provide appropriate level of assist and cueing throughout session. Both pt and her daughter understand anterior hip precautions and are well- equipped to maintain them at the daughter's home. Pt is safe for discharge to her daughter's home with assist and outpatient PT. Goals Bed Mobility Goal Independent Transfer Goal Independent,Front Wheeled Walker Gait Goal Independent,Front Wheel Walker Gait Distance 150 Other Goals up/down 5 steps L rail ascending SBA Days to Meet Goals 5 Frequency of Treatment Frequency Of Treatment Twice a Day Treatment Plan Physical Therapy Treatment Plan Bed Mobility Training,Transfer Training,Gait Training, Therapeutic Exercise,Balance Retraining,Post Op Education, Discharge Planning,Hot or Cold Pack,Neuromuscular Re-ed, Coordination Retraining,Manual Therapy Recommendations To Nursing Amount of Assist Needed Standby Assistance Discharge Recommendations PT Discharge Recommendations Home with Assistance, Outpatient PT Transportation Needs at Discharge Private Vehicle
--- NOTE | 2019-08-29 12:13 | PC.NURSE ---
Addendum entered by Betty Cabral R.N. 08/29/19 14:12: Discharge: IV dc'd intact. Reviewed d/c instructions thoroughly with patient and daughter. Script for Oxycodone sent with daughter this morning. Instructed to call and check on first follow up appt- instructed if not within 10-14 days, please schedule. All belongings collected and sent with patient. Patient and daughter verbalized understanding of d/c info and stated no further questions. Wheeled out to private vehicle by nursing staff. Original Note: Shift summary: Alert and oriented X3. SBA with FWW, getting around quite well. Dressing to R hip dry/intact with scant shadow drainage distally. CMS+, PP+. Reports RLE post-op pain well-managed with scheduled Tylenol, ice and PRN Oxycodone. Lungs CTA. HRR. BT+, flatus+. Abd soft, nontender. Denies feeling constipated despite last BM 08/24. Given prune juice and Miralax this morning. Able to make needs known and calls appropriately. Resting in bed at this time. Plan is to d/c home with her daughter later this afternoon. Call light and belongings within reach, bed alarm active.
== END 2019-08-29 14:17 | disposition home or self-care (01) ==
PROVIDERS: Admitting Provider Orthopaedic Surgery Adult Reconstructive Orthopaedic Surgery; Referring Provider Orthopaedic Surgery Adult Reconstructive Orthopaedic Surgery; Visit Provider Orthopaedic Surgery Adult Reconstructive Orthopaedic Surgery
PROC: (CPT 27130; principal; 2019-08-26 10:15)
DX: M16.11 Unilateral primary osteoarthritis, right hip (principal)
CPT/HCPCS: 27130; 36415; 72170; 73503; 76000; 85014; 85018; 85025; 97116; 97162; 97530; C1776; G0378; J0690; J1100; J1170; J1885; J2270; J2405; J2704; J3010